=== PATIENT | female | born 1965 | race Caucasian/White ===

== ENCOUNTER 2017-04-18 15:18 | Emergency (ER) | payer BC, OTHER ==
[~2017-04-18] VITALS: Ht 180.3 cm; Wt 67.7 kg
[~2017-04-18 15:18] MED LIST: ACET-1256 PO; AMPH20TA2 PO; CALCTAB91 PO; DOCU-94 PO; FLUV100T12 PO; MTR600X PO; OXYC-57 PO
[2017-04-18 15:23] VITALS: TEMP 36.9; Ht 180.3 cm; Wt 67.7 kg
[2017-04-18] MEDS ORDERED: MECLIZINE HCL 25 MG TAB PO STA (15:49)
[2017-04-18] MEDS ORDERED: ONDANSETRON INJ 2 MG/ML 2 ML VIAL IV STA (15:49)
--- NOTE | 2017-04-18 15:56 | EMERGENCY ROOM VISIT NOTE ---
History First contact with patient: 15:35 Chief Complaint: NAUSEA Stated Complaint: NAUSEA, DIZZY Nursing Triage Summary: Patient reports injury to her face approx a week and a half ago states a door hit her in the face. Patient had a in the family prior to the injuries, states that when this happened she had a LOC, patient also having problems with vision and nausea. also c/o Pressure around right eye History of Present Illness The patient is a 51 year old female who presents to the Emergency Room with complaints of dizziness and nausea over the last week. The patient had a head injury 2 weeks ago. She was in a hurry, and reports opening a door into her face. She mainly struck her nose and the right side of her face. There was positive loss of consciousness. The event was unwitnessed. She does not know how long she was out. The patient was not evaluated after the head injury, because her [id number] was very ill. He consequently . The patient has been taking Tylenol with good pain relief of her headache and nasal pain. She reports a dizziness that she describes as an unsteadiness. She feels like she is rocking on a boat. Her symptoms are worse with movement. She denies any history of vertigo. She denies any neck pain. She does not take any blood thinners. Her symptoms are not constant. They have been intermittent over the last week. Review of Systems 10 system review performed and negative unless noted in HPI or below Past Medical/Surgical History Medical Problems: (1) Fibroids Family History No pertinent family history Social History Smoking Status: Never Smoker Alcohol Use: none Drug Use: none Marital Status: Housing Status: lives with family Occupation Status: employed Current/Historical Medications Scheduled Lamotrigine (Lamictal), 1 TAB PO BID Ondasetron Odt (Zofran Odt), 4 MG SL Q6H Scheduled PRN Meclizine Hcl (Meclizine Hcl), 1 TAB PO TID PRN for Dizziness or Vertigo Miscellaneous Medications Fluvoxamine Maleate (Luvox), 100 MG PO Physical Exam Vital Signs Date Time Temp Pulse Resp B/P (MAP) Pulse Ox O2 Delivery O2 Flow Rate FiO2 04/18/17 18:17 78 18 149/99 96 04/18/17 16:03 71 126/80 75 130/103 87 134/91 04/18/17 15:41 87 04/18/17 15:23 36.9 87 20 150/95 100 Room Air Physical Exam VITALS: Vitals are noted on the nurse's note and reviewed by myself. Vital signs stable. GENERAL: 51-year-old female, in no acute distress, nondiaphoretic, well- developed well-nourished. HEAD: Normocephalic atraumatic. Slight old ecchymosis noted inferior to the right eye. No bowel signs or raccoon eyes. EARS: External auditory canals clear, tympanic membranes pearly wilkinson without erythema or effusion bilaterally. EYES: Pupils equal round and reactive to light and accommodation. Conjunctivae without injection, sclerae without icterus. Extraocular movements intact. NOSE: Slight swelling noted over the bridge of the nose. No sinus tenderness. MOUTH: Mucous membranes slightly dry. NECK: Full range of motion of the neck. Cervical spine is nontender. No JVD. MUSCULOSKELETAL: No muscle atrophy, erythema, or edema noted. Strength 5/5 throughout. NEURO: Patient was alert and oriented to person place and time. Cerebellar function intact. No nystagmus noted. Negative Romberg. Normal sensation to touch. No focal neurological deficits. Medical Decision & Procedures ER Provider Diagnostic Interpretation: No acute intracranial hemorrhage, midline shift, mass, large territorial ischemia or abnormal extra-axial collection. The calvarium is intact. The paranasal sinuses, mastoid air cells, and middle ear cavities are clear. IMPRESSION: No acute intracranial abnormality. Laboratory Results 04/18/17 15:55 Red Blood Count 4.93, Mean Corpuscular Volume 87.6, Mean Corpuscular Hemoglobin 30.4, Mean Corpuscular Hemoglobin Concent 34.7, Mean Platelet Volume 9.6, Neutrophils (%) (Auto) 57.2, Lymphocytes (%) (Auto) 34.9, Monocytes (%) (Auto) 5.9, Eosinophils (%) (Auto) 1.4, Basophils (%) (Auto) 0.3, Neutrophils # (Auto) 4.04, Lymphocytes # (Auto) 2.47, Monocytes # (Auto) 0.42, Eosinophils # (Auto) 0.10, Basophils # (Auto) 0.02 04/18/17 15:55 Test 04/18/17 15:55 White Blood Count 7.07 K/uL (4.8-10.8) Red Blood Count 4.93 M/uL (4.2-5.4) Hemoglobin 15.0 g/dL (12.0-16.0) Hematocrit 43.2 % (37-47) Mean Corpuscular Volume 87.6 fL (80-100) Mean Corpuscular Hemoglobin 30.4 pg (25-34) Mean Corpuscular Hemoglobin Concent 34.7 g/dl (32-36) Platelet Count 275 K/uL (130-400) Mean Platelet Volume 9.6 fL (7.4-10.4) Neutrophils (%) (Auto) 57.2 % Lymphocytes (%) (Auto) 34.9 % Monocytes (%) (Auto) 5.9 % Eosinophils (%) (Auto) 1.4 % Basophils (%) (Auto) 0.3 % Neutrophils # (Auto) 4.04 K/uL (1.4-6.5) Lymphocytes # (Auto) 2.47 K/uL (1.2-3.4) Monocytes # (Auto) 0.42 K/uL (0.11-0.59) Eosinophils # (Auto) 0.10 K/uL (0-0.5) Basophils # (Auto) 0.02 K/uL (0-0.2) RDW Standard Deviation 42.3 fL (36.4-46.3) RDW Coefficient of Variation 13.2 % (11.5-14.5) Immature Granulocyte % (Auto) 0.3 % Immature Granulocyte # (Auto) 0.02 K/uL (0.00-0.02) Anion Gap 9.0 mmol/L (3-11) Est Creatinine Clear Calc Drug Dose 91.3 ml/min Estimated GFR () 102.9 Estimated GFR (Non- 88.8 BUN/Creatinine Ratio 11.2 (10-20) Calcium Level 8.9 mg/dl (8.5-10.1) Total Bilirubin 0.3 mg/dl (0.2-1) Aspartate Amino Transf (AST/SGOT) 13 U/L (15-37) Alanine Aminotransferase (ALT/SGPT) 15 U/L (12-78) Alkaline Phosphatase 75 U/L (45-117) Total Protein 7.2 gm/dl (6.4-8.2) Albumin 3.9 gm/dl (3.4-5.0) Globulin 3.3 gm/dl (2.5-4.0) Albumin/Globulin Ratio 1.2 (0.9-2) Acetaminophen Level < 2 ug/ml (10-30) Medications Administered Medications (Trade) Dose Ordered Sig/Joslyn Route Start Time Stop Time Status Last Admin Dose Admin Meclizine HCl (Antivert Tab) 25 mg NOW STAT PO 04/18/17 15:49 04/18/17 15:53 DC 04/18/17 16:07 25 MG Ondansetron HCl (Zofran Inj) 4 mg NOW STAT IV 04/18/17 15:49 04/18/17 15:53 DC 04/18/17 16:08 4 MG Sodium Chloride 1,000 ml @ 999 mls/hr Q1H1M ONCE IV 04/18/17 16:00 04/18/17 17:00 DC 04/18/17 16:00 999 MLS/HR ED Course Patient was seen and examined Vital signs including blood pressure were reviewed medications list was verified with patient Labs were obtained, and a saline lock was established CT of the head was performed The patient was given meclizine 25 mg by mouth and Zofran 4 mg IV. She was hydrated with 1 L of normal saline. Upon reevaluation, the patient did complain of dizziness during the CAT scan. That has now improved. We discussed the results of her workup. She seemed relieved. She was comfortable being discharged home. I reviewed discharge instructions the patient. They voiced understanding and had no further questions. Medical Decision Differential diagnosis: Closed head injury, concussion, vertigo, intracranial bleed, nasal bone fracture, sinusitis, cardiac arrhythmia This patient is a 51-year-old female that presented to the emergency department with complaints of dizziness, nausea and a recent head injury. The head injury was 2 weeks ago. It was fairly significant and she lost consciousness. She did not initially have her symptoms until approximately one week afterwards. On exam, she was neurologically intact. No signs of significant head trauma on my exam. I did not suspect a cardiac arrhythmia. The patient had no complaints of chest pain, palpitations, sweating or shortness of breath. Her heart was regular on exam. A CT was performed and negative for any acute intracranial abnormality or fracture. Her sinuses were also clear. It is possible that the patient's dizziness is related to a concussion. She was advised to follow-up with her primary care physician to be reevaluated in the next 48 hours. She was also given the number to the concussion clinic for further evaluation. Patient was provided a prescription for meclizine and Zofran for her symptoms. She seemed comfortable with this plan. She was given concussion precautions and was discharged in good condition This chart was completed in part utilizing [employer] Speech Voice Recognition software. Attempts were made to minimize the grammatical errors, random word insertions, pronoun errors and incomplete sentences. Any formal questions or concerns about the content, text or information contained within the body of this dictation should be directly addressed to the provider for clarification. Medication Reconcilliation Current Medication List: was personally reviewed by me Blood Pressure Screening Patient's blood pressure: Normal blood pressure Impression Primary Impression: Closed head injury Additional Impression: Dizziness Departure Information Dispostion Home / Self-Care Condition FAIR Prescriptions Ondasetron Odt (ZOFRAN ODT) 4 Mg Tab 4 MG SL Q6H for Nausea, #20 TAB Prov: Irish Velasco PA-C 04/18/17 Meclizine Hcl (MECLIZINE HCL) 25 Mg Tab 1 TAB PO TID Y for Dizziness or Vertigo for 10 Days, #30 TAB Prov: Irish Velasco PA-C 04/18/17 Referrals No Doctor, Assigned (PCP) Patient Instructions [facility] Additional Instructions You were evaluated in the emergency department today for a dizziness/ unsteadiness in addition to nausea after a head injury. It is possible that your symptoms are related to a concussion. Regarding the black spots, please follow-up with either your hydrotechnical specialist or patient accounts coordinator. This ideally would be performed in the next 48 hours. Please follow-up with your primary care physician or the concussion clinic within the next 48 hours for a recheck Meclizine 1 tablet every 8 hours may help with the dizziness. Zofran 1 tablet every 6 hours as needed for nausea Return to the emergency department if you have any of the following symptoms: -Worsening dizziness -Severe headache -Vomiting -Worsening vision -Slurred speech -Confusion Problem Qualifiers
[2017-04-18] MEDS ORDERED: SODIUM CHLORIDE 0.9% 1000ML 1,000 ML IV ONE (16:00)
[2017-04-18] MEDS ORDERED: FLUV100T12 PO (16:01)
[2017-04-18] MEDS ORDERED: LAMO150T32 PO (16:01)
[2017-04-18 16:17] LABS: BASO % 0.3 %; BASO ABS # 0.02 K/uL (0-0.2); COMPLETE YES; EOS % 1.4 %; HEMATOCRIT 43.2 % (37-47); IG% 0.3 %; LYMPH % 34.9 %; LYMPH ABS # 2.47 K/uL (1.2-3.4); MEAN CELL VOLUME 87.6 fL (80-100); MEAN CORPUSCULAR HEMOGLOBIN 30.4 pg (25-34); MEAN CORPUSCULAR HGB CONC 34.7 g/dl (32-36); MEAN PLATELET VOLUME 9.6 fL (7.4-10.4); MONO % 5.9 %; NEUT % 57.2 %; PLATELET COUNT 275 K/uL (130-400); RED BLOOD COUNT 4.93 M/uL (4.2-5.4); WHITE BLOOD COUNT 7.07 K/uL (4.8-10.8)
--- NOTE | 2017-04-18 16:34 | DIAGNOSTIC IMAGING REPORT ---
HEAD WITHOUT CONTRAST (CT) CLINICAL HISTORY: 51 years-old Female with nausea dizziness. Acute nausea and dizziness with history of recent head injury with loss of consciousness TECHNIQUE: Multiple axial CT images of the head were obtained without contrast. A dose lowering technique was utilized adhering to the principles of ALARA. CT DOSE: 537.48 mGy.cm COMPARISON: None. FINDINGS: No acute intracranial hemorrhage, midline shift, mass, large territorial ischemia or abnormal extra-axial collection. The calvarium is intact. The paranasal sinuses, mastoid air cells, and middle ear cavities are clear. IMPRESSION: No acute intracranial abnormality. The above report was generated using voice recognition software. It may contain grammatical, syntax or spelling errors. Electronically signed by: Hakeem Meza M.D. 04/18/2017 4:32 PM Dictated Date/Time: 04/18/2017 4:31 PM
[2017-04-18 16:37] LABS: BUN/CREATININE RATIO 11.2 (10-20); CALCIUM 8.9 mg/dl (8.5-10.1); CREATININE 0.77 mg/dl (0.60-1.20); POTASSIUM 3.4 mmol/L (3.5-5.1)
[2017-04-18 16:40] LABS: ALB/GLOB RATIO 1.2 (0.9-2)
[2017-04-18] MEDS ORDERED: MECL1TAB42 PO (17:37)
[2017-04-18] MEDS ORDERED: ONDA4TAB10 SL (17:37)
[2017-04-18 18:17] VITALS: BP 149/99; PULSE 78; O2SAT 96
== END 2017-04-18 18:19 | disposition home or self-care (01) ==
LOC: C.EDB 15:19 → C.EDC 18:19
DX: S09.90XA Unspecified injury of head, initial encounter (principal); W22.09XA Striking against other stationary object, initial encounter; R42 Dizziness and giddiness; Z79.899 Other long term (current) drug therapy